=== PATIENT | female | born 1940 | race Caucasian/White ===

== ENCOUNTER 2019-04-04 12:52 | Inpatient (IN) | payer MEDICARE, OTHER ==
[2019-04-04 13:53] LABS: ADD MAN DIFF? NO
[2019-04-04 13:57] LABS: BASOPHIL # 0.1 10^3/ul (0.0-0.1); BASOPHILS % 0.7 % (0.0-2.0); EOSINOPHILS # 0.3 10^3/ul (0.0-0.5); EOSINOPHILS % 2.4 % (0.0-7.0); HEMATOCRIT 38.7 % (37.0-47.0); HEMOGLOBIN 12.3 g/dl (12.0-16.0); LYMPHOCYTES # 3.2 10^3/ul (0.8-2.9); MEAN CORPUSCULAR HEMOGLOBIN 29.1 pg (29.0-33.0); MEAN CORPUSCULAR HGB CONC 31.8 g/dl (32.0-37.0); MEAN CORPUSCULAR VOLUME 91.7 fl (82.0-101.0); MONOCYTE # 1.5 10^3/ul (0.3-0.9); MONOCYTES % 11.2 % (0.0-11.0); NEUTROPHIL # 8.1 10^3/ul (1.6-7.5); NEUTROPHILS % 61.4 % (39.0-77.0); PLATELET COUNT 274 10^3/UL (140-415); RED BLOOD COUNT 4.22 10^6/ul (4.20-5.40); RED CELL DISTRIBUTION WIDTH 14.1 % (11.5-14.5)
[2019-04-04 13:57] LABS: WHITE BLOOD COUNT 13.2 10^3/ul (4.8-10.8)
[2019-04-04] MEDS: LACTATED RINGER'S 1,000 ML IV (13:58)
[2019-04-04 14:15] LABS: ALANINE AMINOTRANSFERASE 25 IU/L (13-69); ALBUMIN 3.7 g/dl (3.3-4.9); ALBUMIN/GLOBULIN RATIO 1.15; ALKALINE PHOSPHATASE 36 IU/L (42-121); ANION GAP 8 (5-13); ASPARTATE AMINO TRANSFERASE 17 IU/L (15-46); BILIRUBIN,INDIRECT 0.5 mg/dl (0-1.1); BILIRUBIN,TOTAL 0.5 mg/dl (0.2-1.3); CALCIUM 9.3 mg/dl (8.4-10.2); CARBON DIOXIDE 27 mmol/L (21-31); CHLORIDE 105 mmol/L (97-110); GLUCOSE 108 mg/dl (70-220); POTASSIUM 3.9 mmol/L (3.5-5.1); SODIUM 140 mmol/L (135-144); TOTAL PROTEIN 6.9 g/dl (6.1-8.1)
[2019-04-04] MEDS ORDERED: CEFAZOLIN 1 GM INJ ×2 (14:16→20:34)
[2019-04-04 14:17] LABS: INR 0.96; PROTIME 12.9 Sec (11.9-14.9)
[2019-04-04 14:20] LABS: PARTIAL THROMBOPLASTIN TIME 35.4 Sec (23.0-35.0)
[2019-04-04 14:21] LABS: BLOOD UREA NITROGEN 33 mg/dl (7-20); CREATININE 1.31 mg/dl (0.44-1.00)
[2019-04-04 14:22] LABS: HOLD TRANSMISSIONS 1
[2019-04-04] MEDS ORDERED: hydrALAzine 20 MG INJ IV ×2 (15:30→19:30)
[2019-04-04] MEDS ORDERED: IPRATROPIUM (NEB) 0.5 MG/2.5 ML AMP HHN ×2 (15:30→19:30)
[2019-04-04] MEDS ORDERED: MIDAZOLAM 1 MG/ML 2 ML INJ IV ×2 (15:30→19:30)
[2019-04-04] MEDS ORDERED: MEPERIDINE 25 MG INJ IV ×2 (15:30→19:30)
[2019-04-04] MEDS ORDERED: HYDROmorphONE 1 MG/5 ML IV SYRINGE IV ×3 (15:30)
[2019-04-04] MEDS ORDERED: FENTAnyl 50 MCG/ML VIAL IV ×6 (15:30→19:30)
[2019-04-04] MEDS ORDERED: ALBUTEROL 0.083% (NEB) 2.5 MG/3 ML AMP HHN ×2 (15:30→19:30)
[2019-04-04] MEDS ORDERED: ONDANSETRON 4 MG INJ IV ×2 (15:30→19:30)
[2019-04-04] MEDS ORDERED: EPHEDrine 25 MG/5 ML SYG IV ×2 (15:30→19:30)
[2019-04-04] MEDS ORDERED: TRIMETHOBENZAMIDE 100 MG/ML VIAL IM ×2 (15:30→19:30)
[2019-04-04] MEDS ORDERED: DIPHENHYDRAMINE 50 MG INJ IV ×2 (15:30→19:30)
[2019-04-04] MEDS ORDERED: LABETALOL HCL 20MG INJ IV ×2 (15:30→19:30)
[2019-04-04] MEDS ORDERED: NEOSTIGMINE 3 MG/3 ML SYRINGE ×2 (15:52→20:34)
[2019-04-04] MEDS ORDERED: ROCURONIUM 50 MG INJ ×2 (15:52→20:34)
[2019-04-04] MEDS ORDERED: PROPOFOL 20 ML ×2 (15:52→20:34)
[2019-04-04] MEDS ORDERED: GLYCOPYRROLATE 0.4 MG INJ ×2 (15:52→20:34)
[2019-04-04] MEDS ORDERED: MIDAZOLAM 1 MG/ML 2 ML INJ ×2 (15:52→20:34)
[2019-04-04] MEDS ORDERED: DEXAMETHASONE 4 MG/ML 5 ML INJ ×2 (15:52→20:34)
[2019-04-04] MEDS ORDERED: ONDANSETRON 4 MG INJ ×2 (15:52→20:34)
[2019-04-04] MEDS ORDERED: SUGAMMADEX SODIUM 200 MG/2 ML VIAL IV ×2 (16:00→18:52)
[2019-04-04] MEDS ORDERED: EPHEDrine 25 MG/5 ML SYG (16:00)
[2019-04-04] MEDS ORDERED: DESFLURANE 15 MIN (16:00)
[2019-04-04] MEDS: GELATIN SIZE 100 SPONGE ×2 (16:13→17:57)
[2019-04-04] MEDS: CEFAZOLIN 1 GM INJ (16:13)
[2019-04-04] MEDS: HEPARIN 1000 UNITS/ML 10 ML INJ ×3 (16:14→20:22)
[2019-04-04] MEDS ORDERED: NACL 0.9% 3 ML SYG IV (17:30)
[2019-04-04] MEDS ORDERED: HYDROmorphONE 0.2 MG/ML PCA IV (17:30)
[2019-04-04] MEDS: DOCUSATE SODIUM 100 MG CAP PO ×2 (17:30→21:00)
[2019-04-04] MEDS ORDERED: NALOXONE (0.4 MG/ML) INJ IV (17:30)
[2019-04-04] MEDS: SURGIFOAM POWDER 1 GM KIT (17:57)
[2019-04-04] MEDS: THROMBIN (BOVINE) 5,000 UNIT VIAL TP ×2 (17:58→17:59)
[2019-04-04] MEDS: CEFAZOLIN 2 GM/50 ML (PMX) 50 ML IVPB (18:00)
[2019-04-04] MEDS: NS + KCL 20 MEQ 1,000 ML IV (18:30)
[2019-04-04] MEDS ORDERED: FENTAnyl 50 MCG/ML VIAL (18:51)
[2019-04-04] MEDS ORDERED: METOCLOPRAMIDE 10 MG INJ IV (19:30)
[2019-04-04] MEDS ORDERED: HYDROmorphONE 0.5 MG/0.5 ML SYG IV ×2 (19:30)
[2019-04-04] MEDS: BACITRACIN/POLYMYXIN 28.35 GM OINT TOP (19:30)
[2019-04-04] MEDS ORDERED: HALOPERIDOL 5 MG INJ IV (19:30)
[2019-04-04] MEDS: HYDROmorphONE 1 MG/ML SYG IV ×2 (19:33→23:08)
[2019-04-04] MEDS ORDERED: IOHEXOL 300MG/ML 30 ML BTL (20:21)
[2019-04-04] MEDS ORDERED: HEPARIN 1000 UNITS/ML 10 ML INJ (20:29)
[2019-04-04] MEDS ORDERED: THROMBIN (BOVINE) 5,000 UNIT VIAL TP ×3 (20:48→22:27)
[2019-04-04] MEDS ORDERED: GELATIN SIZE 100 SPONGE (20:48)
[2019-04-04 20:56] LABS: ADD MAN DIFF? NO
[2019-04-04 20:57] LABS: WHITE BLOOD COUNT 13.9 10^3/ul (4.8-10.8)
[2019-04-04 20:57] LABS: BASOPHILS % 0.3 % (0.0-2.0); EOSINOPHILS # 0.1 10^3/ul (0.0-0.5); EOSINOPHILS % 0.5 % (0.0-7.0); HEMATOCRIT 26.2 % (37.0-47.0); HEMOGLOBIN 8.4 g/dl (12.0-16.0); LYMPHOCYTES # 1.2 10^3/ul (0.8-2.9); LYMPHOCYTES % 8.8 % (15.0-51.0); MEAN CORPUSCULAR HEMOGLOBIN 29.7 pg (29.0-33.0); MEAN CORPUSCULAR HGB CONC 32.1 g/dl (32.0-37.0); MEAN CORPUSCULAR VOLUME 92.6 fl (82.0-101.0); MEAN PLATELET VOLUME 12.4 fl (7.4-10.4); MONOCYTE # 0.7 10^3/ul (0.3-0.9); MONOCYTES % 5.3 % (0.0-11.0); NEUTROPHIL # 11.7 10^3/ul (1.6-7.5); NEUTROPHILS % 84.4 % (39.0-77.0); PLATELET COUNT 160 10^3/UL (140-415); RED BLOOD COUNT 2.83 10^6/ul (4.20-5.40); RED CELL DISTRIBUTION WIDTH 13.8 % (11.5-14.5)
[2019-04-04 21:14] LABS: IMMEDIATE SPIN CROSSMATCH 1 4
[2019-04-04] MEDS: IOHEXOL 300MG/ML 30 ML BTL (22:56)
[2019-04-04] MEDS: PAPAVERINE 60 MG INJ (22:56)
[2019-04-05] MEDS: HYDROmorphONE 0.5 MG/0.5 ML SYG IV ×6 (00:29→23:57)
[2019-04-05 01:33] LABS: ADD MAN DIFF? NO
[2019-04-05 01:35] LABS: BASOPHIL # 0.1 10^3/ul (0.0-0.1); BASOPHILS % 0.4 % (0.0-2.0); EOSINOPHILS % 0.1 % (0.0-7.0); HEMATOCRIT 35.5 % (37.0-47.0); HEMOGLOBIN 11.2 g/dl (12.0-16.0); LYMPHOCYTES # 1.2 10^3/ul (0.8-2.9); LYMPHOCYTES % 6.7 % (15.0-51.0); MEAN CORPUSCULAR HEMOGLOBIN 29.2 pg (29.0-33.0); MEAN CORPUSCULAR HGB CONC 31.5 g/dl (32.0-37.0); MEAN CORPUSCULAR VOLUME 92.4 fl (82.0-101.0); MEAN PLATELET VOLUME 11.8 fl (7.4-10.4); MONOCYTES % 5.6 % (0.0-11.0); NEUTROPHIL # 15.7 10^3/ul (1.6-7.5); NEUTROPHILS % 86.4 % (39.0-77.0); PLATELET COUNT 169 10^3/UL (140-415); RED BLOOD COUNT 3.84 10^6/ul (4.20-5.40); RED CELL DISTRIBUTION WIDTH 14.8 % (11.5-14.5)
[2019-04-05 01:35] LABS: WHITE BLOOD COUNT 18.1 10^3/ul (4.8-10.8)
[2019-04-05 02:21] LABS: ANION GAP 11 (5-13); BLOOD UREA NITROGEN 22 mg/dl (7-20); CALCIUM 6.8 mg/dl (8.4-10.2); CARBON DIOXIDE 23 mmol/L (21-31); CHLORIDE 111 mmol/L (97-110); CREATININE 0.88 mg/dl (0.44-1.00); GLUCOSE 171 mg/dl (70-220); POTASSIUM 4.2 mmol/L (3.5-5.1); SODIUM 145 mmol/L (135-144)
[2019-04-05] MEDS: NS + KCL 20 MEQ 1,000 ML IV ×4 (05:10→23:56)
[2019-04-05] MEDS: CEFAZOLIN 2 GM/50 ML (PMX) 50 ML IVPB ×3 (05:10→21:53)
[2019-04-05 05:29] LABS: HEMATOCRIT 34.8 % (37.0-47.0); HEMOGLOBIN 11.2 g/dl (12.0-16.0)
[2019-04-05 05:54] LABS: ANION GAP 6 (5-13); BLOOD UREA NITROGEN 21 mg/dl (7-20); CARBON DIOXIDE 24 mmol/L (21-31); CHLORIDE 111 mmol/L (97-110); CREATININE 0.98 mg/dl (0.44-1.00); GLUCOSE 154 mg/dl (70-220); POTASSIUM 4.4 mmol/L (3.5-5.1); SODIUM 141 mmol/L (135-144)
[2019-04-05] MEDS: DOCUSATE SODIUM 100 MG CAP PO ×2 (09:00→20:03)
[2019-04-05] MEDS ORDERED: ALPRAZOLAM 0.25 MG TAB PO (14:30)
[2019-04-05] MEDS: PREGABALIN 50 MG CAP PO (20:04)
[2019-04-05] MEDS: METOPROLOL 25 MG TAB PO (20:06)
[2019-04-05] MEDS: ROSUVASTATIN CALCIUM 40 MG TABLET PO (20:06)
[2019-04-06] MEDS: ZOLPIDEM 5 MG TAB PO (02:35)
[2019-04-06] MEDS: CEFAZOLIN 2 GM/50 ML (PMX) 50 ML IVPB ×3 (05:17→22:47)
[2019-04-06] MEDS: HYDROmorphONE 0.5 MG/0.5 ML SYG IV ×5 (06:52→21:23)
[2019-04-06] MEDS: PREGABALIN 50 MG CAP PO ×2 (09:22→23:09)
[2019-04-06] MEDS: DOCUSATE SODIUM 100 MG CAP PO ×2 (09:22→21:22)
[2019-04-06] MEDS: METOPROLOL 25 MG TAB PO ×2 (09:23→21:22)
[2019-04-06] MEDS: NS + KCL 20 MEQ 1,000 ML IV ×2 (09:25→22:47)
[2019-04-06] MEDS: HYDROCODONE/APAP (5/325) TAB PO (16:05)
[2019-04-06] MEDS: ROSUVASTATIN CALCIUM 40 MG TABLET PO (21:22)
[2019-04-07] MEDS: HYDROmorphONE 0.5 MG/0.5 ML SYG IV (00:30)
[2019-04-07] MEDS: ZOLPIDEM 5 MG TAB PO (02:21)
[2019-04-07] MEDS: HYDROCODONE/APAP (5/325) TAB PO ×5 (05:22→22:43)
[2019-04-07] MEDS: NS + KCL 20 MEQ 1,000 ML IV ×2 (06:30→13:21)
[2019-04-07] MEDS: CEFAZOLIN 2 GM/50 ML (PMX) 50 ML IVPB ×3 (06:32→21:01)
[2019-04-07 06:36] LABS: ADD MAN DIFF? NO
[2019-04-07 06:38] LABS: WHITE BLOOD COUNT 13.4 10^3/ul (4.8-10.8)
[2019-04-07 06:38] LABS: ABNORMAL IP MESSAGE 1; BASOPHIL # 0.1 10^3/ul (0.0-0.1); BASOPHILS % 0.4 % (0.0-2.0); EOSINOPHILS # 0.1 10^3/ul (0.0-0.5); EOSINOPHILS % 0.7 % (0.0-7.0); HEMATOCRIT 31.7 % (37.0-47.0); HEMOGLOBIN 9.9 g/dl (12.0-16.0); LYMPHOCYTES # 2.3 10^3/ul (0.8-2.9); MEAN CORPUSCULAR HEMOGLOBIN 29.6 pg (29.0-33.0); MEAN CORPUSCULAR HGB CONC 31.2 g/dl (32.0-37.0); MEAN CORPUSCULAR VOLUME 94.9 fl (82.0-101.0); MEAN PLATELET VOLUME 12.1 fl (7.4-10.4); MONOCYTE # 1.6 10^3/ul (0.3-0.9); MONOCYTES % 11.6 % (0.0-11.0); NEUTROPHIL # 9.3 10^3/ul (1.6-7.5); NEUTROPHILS % 69.4 % (39.0-77.0); PLATELET COUNT 124 10^3/UL (140-415); RED BLOOD COUNT 3.34 10^6/ul (4.20-5.40); RED CELL DISTRIBUTION WIDTH 15.3 % (11.5-14.5)
[2019-04-07 06:47] LABS: POSITIVE DIFF @See below
[2019-04-07 07:08] LABS: ANION GAP 8 (5-13); BLOOD UREA NITROGEN 14 mg/dl (7-20); CALCIUM 6.6 mg/dl (8.4-10.2); CARBON DIOXIDE 23 mmol/L (21-31); CHLORIDE 112 mmol/L (97-110); CREATININE 0.89 mg/dl (0.44-1.00); GLUCOSE 75 mg/dl (70-220); POTASSIUM 4.3 mmol/L (3.5-5.1); SODIUM 143 mmol/L (135-144)
[2019-04-07] MEDS: AMLODIPINE 10 MG TAB PO (08:46)
[2019-04-07] MEDS: HYDROCHLOROTHIAZIDE 25 MG TAB PO (08:47)
[2019-04-07] MEDS: LOSARTAN 50 MG TAB PO (08:47)
[2019-04-07] MEDS: METOPROLOL 25 MG TAB PO ×2 (08:48→20:50)
[2019-04-07] MEDS: DOCUSATE SODIUM 100 MG CAP PO ×2 (08:49→20:49)
[2019-04-07] MEDS: PREGABALIN 50 MG CAP PO ×2 (08:49→20:50)
[2019-04-07] MEDS: ASPIRIN 81 MG TAB PO (08:49)
[2019-04-07] MEDS ORDERED: [UNRECOGNIZED DRUG - OTHER] PO (09:00)
[2019-04-07] MEDS ORDERED: HYDROCHLOROTHIAZIDE PO (09:00)
[2019-04-07] MEDS ORDERED: OLMESARTAN PO (09:00)
[2019-04-07] MEDS: ROSUVASTATIN CALCIUM 40 MG TABLET PO (20:50)
[2019-04-08] MEDS: ZOLPIDEM 5 MG TAB PO ×2 (01:14→21:37)
[2019-04-08] MEDS: CALCIUM GLUCONATE 10% 1 GM in DEXTROSE 5% 100 ML IVPB ×2 (01:14→03:09)
[2019-04-08] MEDS: CEFAZOLIN 2 GM/50 ML (PMX) 50 ML IVPB ×3 (05:51→22:21)
[2019-04-08 06:11] LABS: ADD MAN DIFF? NO
[2019-04-08 06:17] LABS: BASOPHIL # 0.1 10^3/ul (0.0-0.1); BASOPHILS % 0.5 % (0.0-2.0); EOSINOPHILS # 0.4 10^3/ul (0.0-0.5); EOSINOPHILS % 3.3 % (0.0-7.0); HEMATOCRIT 34.5 % (37.0-47.0); HEMOGLOBIN 10.8 g/dl (12.0-16.0); LYMPHOCYTES % 19.2 % (15.0-51.0); MEAN CORPUSCULAR HEMOGLOBIN 28.8 pg (29.0-33.0); MEAN CORPUSCULAR HGB CONC 31.3 g/dl (32.0-37.0); MEAN PLATELET VOLUME 11.9 fl (7.4-10.4); MONOCYTE # 1.2 10^3/ul (0.3-0.9); MONOCYTES % 11.1 % (0.0-11.0); NEUTROPHIL # 6.8 10^3/ul (1.6-7.5); NEUTROPHILS % 65.1 % (39.0-77.0); PLATELET COUNT 136 10^3/UL (140-415); RED BLOOD COUNT 3.75 10^6/ul (4.20-5.40); RED CELL DISTRIBUTION WIDTH 14.6 % (11.5-14.5)
[2019-04-08 06:17] LABS: WHITE BLOOD COUNT 10.5 10^3/ul (4.8-10.8)
[2019-04-08 06:39] LABS: MAGNESIUM 1.4 mg/dl (1.7-2.5)
[2019-04-08 06:39] LABS: PHOSPHORUS 1.4 mg/dl (2.5-4.9)
[2019-04-08 06:41] LABS: ANION GAP 8 (5-13); BLOOD UREA NITROGEN 12 mg/dl (7-20); CALCIUM 7.7 mg/dl (8.4-10.2); CARBON DIOXIDE 25 mmol/L (21-31); CHLORIDE 104 mmol/L (97-110); CREATININE 0.78 mg/dl (0.44-1.00); GLUCOSE 93 mg/dl (70-220); POTASSIUM 3.7 mmol/L (3.5-5.1); SODIUM 137 mmol/L (135-144)
[2019-04-08] MEDS: DOCUSATE SODIUM 100 MG CAP PO ×2 (08:59→21:31)
[2019-04-08] MEDS: ASPIRIN 81 MG TAB PO (08:59)
[2019-04-08] MEDS: AMLODIPINE 10 MG TAB PO (09:00)
[2019-04-08] MEDS: PREGABALIN 50 MG CAP PO ×2 (09:00→21:00)
[2019-04-08] MEDS: HYDROCHLOROTHIAZIDE 25 MG TAB PO (09:01)
[2019-04-08] MEDS: METOPROLOL 25 MG TAB PO ×2 (09:01→21:32)
[2019-04-08] MEDS: LOSARTAN 50 MG TAB PO (09:02)
[2019-04-08] MEDS: HYDROCODONE/APAP (5/325) TAB PO ×2 (09:02→21:37)
[2019-04-08] MEDS: MAGNESIUM SULFATE 4 GM/100 ML 100 ML IVPB (09:32)
[2019-04-08] MEDS: POTASSIUM PHOSPHATE 20 MM in SOD CHLORIDE 0.9% 250 ML IVPB (11:36)
[2019-04-08] MEDS: BISACODYL (EC) 5 MG TAB PO (14:56)
[2019-04-08] MEDS: ROSUVASTATIN CALCIUM 40 MG TABLET PO (21:31)
[2019-04-09] MEDS: CEFAZOLIN 2 GM/50 ML (PMX) 50 ML IVPB ×3 (05:50→21:21)
[2019-04-09] MEDS: HYDROCODONE/APAP (5/325) TAB PO ×2 (05:50→18:07)
[2019-04-09 06:53] LABS: ANION GAP 8 (5-13); BLOOD UREA NITROGEN 11 mg/dl (7-20); CALCIUM 8.5 mg/dl (8.4-10.2); CARBON DIOXIDE 33 mmol/L (21-31); CHLORIDE 98 mmol/L (97-110); CREATININE 0.82 mg/dl (0.44-1.00); GLUCOSE 94 mg/dl (70-220); MAGNESIUM 1.7 mg/dl (1.7-2.5); PHOSPHORUS 2.1 mg/dl (2.5-4.9); POTASSIUM 3.9 mmol/L (3.5-5.1); SODIUM 139 mmol/L (135-144)
[2019-04-09] MEDS: DOCUSATE SODIUM 100 MG CAP PO ×2 (08:15→21:20)
[2019-04-09] MEDS: LOSARTAN 50 MG TAB PO (08:15)
[2019-04-09] MEDS: HYDROmorphONE 0.5 MG/0.5 ML SYG IV (08:15)
[2019-04-09] MEDS: METOPROLOL 25 MG TAB PO ×2 (08:16→21:20)
[2019-04-09] MEDS: ASPIRIN 81 MG TAB PO (08:16)
[2019-04-09] MEDS: AMLODIPINE 10 MG TAB PO (08:16)
[2019-04-09] MEDS: HYDROCHLOROTHIAZIDE 25 MG TAB PO (08:16)
[2019-04-09] MEDS: PREGABALIN 50 MG CAP PO ×2 (08:37→21:20)
[2019-04-09] MEDS: AMIODARONE 200 MG TAB PO ×3 (08:38→21:21)
[2019-04-09] MEDS: ENOXAPARIN 80 MG/0.8 ML SYG SC ×2 (08:46→21:39)
[2019-04-09] MEDS ORDERED: AMIODARONE 200 MG TAB PO (09:00)
[2019-04-09] MEDS ORDERED: ENOXAPARIN 100 MG/ML SYG SC (09:00)
[2019-04-09] MEDS: POTASSIUM PHOSPHATE 15 MM in SOD CHLORIDE 0.9% 250 ML IVPB (10:58)
[2019-04-09] MEDS: ROSUVASTATIN CALCIUM 40 MG TABLET PO (21:19)
[2019-04-09] MEDS: ZOLPIDEM 5 MG TAB PO (23:59)
[2019-04-10 06:05] LABS: ADD MAN DIFF? NO
[2019-04-10 06:12] LABS: BASOPHIL # 0.1 10^3/ul (0.0-0.1); BASOPHILS % 0.7 % (0.0-2.0); EOSINOPHILS # 0.5 10^3/ul (0.0-0.5); EOSINOPHILS % 5.6 % (0.0-7.0); HEMOGLOBIN 11.2 g/dl (12.0-16.0); LYMPHOCYTES # 1.7 10^3/ul (0.8-2.9); LYMPHOCYTES % 19.9 % (15.0-51.0); MEAN CORPUSCULAR HEMOGLOBIN 28.9 pg (29.0-33.0); MEAN CORPUSCULAR VOLUME 90.2 fl (82.0-101.0); MEAN PLATELET VOLUME 11.3 fl (7.4-10.4); MONOCYTE # 1.3 10^3/ul (0.3-0.9); MONOCYTES % 15.4 % (0.0-11.0); NEUTROPHIL # 4.9 10^3/ul (1.6-7.5); NEUTROPHILS % 57.3 % (39.0-77.0); PLATELET COUNT 198 10^3/UL (140-415); RED BLOOD COUNT 3.88 10^6/ul (4.20-5.40); RED CELL DISTRIBUTION WIDTH 14.3 % (11.5-14.5)
[2019-04-10 06:12] LABS: WHITE BLOOD COUNT 8.5 10^3/ul (4.8-10.8)
[2019-04-10 06:22] LABS: ANION GAP 9 (5-13); BLOOD UREA NITROGEN 16 mg/dl (7-20); CALCIUM 7.8 mg/dl (8.4-10.2); CARBON DIOXIDE 30 mmol/L (21-31); CHLORIDE 98 mmol/L (97-110); CREATININE 0.86 mg/dl (0.44-1.00); GLUCOSE 77 mg/dl (70-220); PHOSPHORUS 2.6 mg/dl (2.5-4.9); POTASSIUM 3.5 mmol/L (3.5-5.1); SODIUM 137 mmol/L (135-144)
[2019-04-10] MEDS: AMLODIPINE 10 MG TAB PO (08:43)
[2019-04-10] MEDS: AMIODARONE 200 MG TAB PO ×2 (08:43→21:19)
[2019-04-10] MEDS: DOCUSATE SODIUM 100 MG CAP PO ×2 (08:43→21:20)
[2019-04-10] MEDS: HYDROCHLOROTHIAZIDE 25 MG TAB PO (08:44)
[2019-04-10] MEDS: PREGABALIN 50 MG CAP PO ×2 (08:44→21:21)
[2019-04-10] MEDS: LOSARTAN 50 MG TAB PO (08:44)
[2019-04-10] MEDS: METOPROLOL 25 MG TAB PO ×2 (08:44→21:20)
[2019-04-10] MEDS: HYDROCODONE/APAP (5/325) TAB PO ×3 (08:45→19:17)
[2019-04-10] MEDS: ASPIRIN 81 MG TAB PO (08:45)
[2019-04-10] MEDS: ENOXAPARIN 80 MG/0.8 ML SYG SC ×2 (08:52→21:39)
[2019-04-10] MEDS: ROSUVASTATIN CALCIUM 40 MG TABLET PO (21:18)
[2019-04-11] MEDS: ZOLPIDEM 5 MG TAB PO (00:14)
[2019-04-11 06:39] LABS: ANION GAP 5 (5-13); BLOOD UREA NITROGEN 18 mg/dl (7-20); CARBON DIOXIDE 35 mmol/L (21-31); CHLORIDE 96 mmol/L (97-110); CREATININE 0.91 mg/dl (0.44-1.00); GLUCOSE 92 mg/dl (70-220); POTASSIUM 3.6 mmol/L (3.5-5.1); SODIUM 136 mmol/L (135-144)
[2019-04-11] MEDS: HYDROCHLOROTHIAZIDE 25 MG TAB PO (08:28)
[2019-04-11] MEDS: PREGABALIN 50 MG CAP PO ×2 (08:29→21:41)
[2019-04-11] MEDS: METOPROLOL 25 MG TAB PO ×2 (08:29→21:00)
[2019-04-11] MEDS: LOSARTAN 50 MG TAB PO (08:29)
[2019-04-11] MEDS: HYDROCODONE/APAP (5/325) TAB PO ×4 (08:29→21:57)
[2019-04-11] MEDS: ASPIRIN 81 MG TAB PO (08:29)
[2019-04-11] MEDS: AMLODIPINE 10 MG TAB PO (08:29)
[2019-04-11] MEDS: DOCUSATE SODIUM 100 MG CAP PO ×2 (08:29→21:41)
[2019-04-11] MEDS: AMIODARONE 200 MG TAB PO ×2 (08:30→21:42)
[2019-04-11] MEDS: ENOXAPARIN 80 MG/0.8 ML SYG SC ×2 (08:32→21:53)
[2019-04-11] MEDS: ROSUVASTATIN CALCIUM 40 MG TABLET PO (21:41)
[2019-04-12] MEDS: ZOLPIDEM 5 MG TAB PO ×2 (01:57→23:49)
[2019-04-12] MEDS: DOCUSATE SODIUM 100 MG CAP PO ×2 (09:12→20:13)
[2019-04-12] MEDS: AMLODIPINE 10 MG TAB PO (09:12)
[2019-04-12] MEDS: HYDROCHLOROTHIAZIDE 25 MG TAB PO (09:13)
[2019-04-12] MEDS: METOPROLOL 25 MG TAB PO ×2 (09:13→20:13)
[2019-04-12] MEDS: LOSARTAN 50 MG TAB PO (09:14)
[2019-04-12] MEDS: PREGABALIN 50 MG CAP PO ×2 (09:14→20:12)
[2019-04-12] MEDS: AMIODARONE 200 MG TAB PO (09:14)
[2019-04-12] MEDS: ENOXAPARIN 80 MG/0.8 ML SYG SC ×2 (09:14→20:28)
[2019-04-12] MEDS: ASPIRIN 81 MG TAB PO (09:14)
[2019-04-12] MEDS: HYDROCODONE/APAP (5/325) TAB PO (12:38)
[2019-04-12] MEDS: HYDROmorphONE 0.5 MG/0.5 ML SYG IV ×2 (14:52→20:13)
[2019-04-12] MEDS: ROSUVASTATIN CALCIUM 40 MG TABLET PO (20:13)
[2019-04-13 07:22] LABS: ANION GAP 9 (5-13); BLOOD UREA NITROGEN 21 mg/dl (7-20); CALCIUM 8.1 mg/dl (8.4-10.2); CARBON DIOXIDE 34 mmol/L (21-31); CHLORIDE 95 mmol/L (97-110); CREATININE 1.04 mg/dl (0.44-1.00); GLUCOSE 98 mg/dl (70-220); MAGNESIUM 1.6 mg/dl (1.7-2.5); POTASSIUM 3.2 mmol/L (3.5-5.1); SODIUM 138 mmol/L (135-144)
[2019-04-13] MEDS: ASPIRIN 81 MG TAB PO (08:50)
[2019-04-13] MEDS: DOCUSATE SODIUM 100 MG CAP PO ×2 (08:50→20:34)
[2019-04-13] MEDS: PREGABALIN 50 MG CAP PO ×2 (08:55→20:34)
[2019-04-13] MEDS: AMLODIPINE 10 MG TAB PO (08:55)
[2019-04-13] MEDS: HYDROCODONE/APAP (5/325) TAB PO ×2 (08:56→14:22)
[2019-04-13] MEDS: AMIODARONE 200 MG TAB PO (08:56)
[2019-04-13] MEDS: LOSARTAN 50 MG TAB PO (08:57)
[2019-04-13] MEDS: HYDROCHLOROTHIAZIDE 25 MG TAB PO (08:57)
[2019-04-13] MEDS: METOPROLOL 25 MG TAB PO ×2 (08:57→20:35)
[2019-04-13] MEDS: ENOXAPARIN 80 MG/0.8 ML SYG SC ×2 (09:24→20:57)
[2019-04-13] MEDS: POTASSIUM CHLORIDE (SR) 20 MEQ TAB PO (13:36)
[2019-04-13] MEDS: MAGNESIUM SULFATE 3 GM in DEXTROSE 5% 100 ML IVPB (15:55)
[2019-04-13] MEDS: ROSUVASTATIN CALCIUM 40 MG TABLET PO (20:34)
[2019-04-13] MEDS: HYDROmorphONE 0.5 MG/0.5 ML SYG IV (20:35)
[2019-04-14] MEDS: ZOLPIDEM 5 MG TAB PO (00:21)
[2019-04-14] MEDS: HYDROmorphONE 0.5 MG/0.5 ML SYG IV ×3 (07:33→16:14)
[2019-04-14] MEDS: PREGABALIN 50 MG CAP PO ×2 (08:07→20:37)
[2019-04-14] MEDS: DOCUSATE SODIUM 100 MG CAP PO ×2 (08:08→20:36)
[2019-04-14] MEDS: LOSARTAN 50 MG TAB PO (08:09)
[2019-04-14] MEDS: AMIODARONE 200 MG TAB PO (08:09)
[2019-04-14] MEDS: METOPROLOL 25 MG TAB PO ×2 (08:09→20:37)
[2019-04-14] MEDS: HYDROCHLOROTHIAZIDE 25 MG TAB PO (08:10)
[2019-04-14] MEDS: ASPIRIN 81 MG TAB PO (08:10)
[2019-04-14] MEDS: AMLODIPINE 10 MG TAB PO (08:10)
[2019-04-14] MEDS: ENOXAPARIN 80 MG/0.8 ML SYG SC ×2 (08:17→21:27)
[2019-04-14 08:56] LABS: ANION GAP 6 (5-13); BLOOD UREA NITROGEN 25 mg/dl (7-20); CALCIUM 8.2 mg/dl (8.4-10.2); CARBON DIOXIDE 36 mmol/L (21-31); CHLORIDE 96 mmol/L (97-110); CREATININE 1.14 mg/dl (0.44-1.00); GLUCOSE 97 mg/dl (70-220); SODIUM 138 mmol/L (135-144)
[2019-04-14 11:01] LABS: MAGNESIUM 2.2 mg/dl (1.7-2.5)
[2019-04-14] MEDS: ROSUVASTATIN CALCIUM 40 MG TABLET PO (20:36)
== END 2019-04-14 20:55 | DRG 460 ==
LOC: TEL 04-06 15:43 → REC 12:52 → ICU 19:05
PROC: 0SG30A0 Fusion of Lumbosacral Joint with Interbody Fusion Device, Anterior Approach, Anterior Column, Open Approach (ICD-10-PCS; principal; 2019-04-04 15:00)
PROC: 0SG00A0 Fusion of Lumbar Vertebral Joint with Interbody Fusion Device, Anterior Approach, Anterior Column, Open Approach (ICD-10-PCS; 2019-04-04 15:00)
PROC: 4A11X4G Monitoring of Peripheral Nervous Electrical Activity, Intraoperative, External Approach (ICD-10-PCS; 2019-04-04 15:00)
PROC: 30233N1 Transfusion of Nonautologous Red Blood Cells into Peripheral Vein, Percutaneous Approach (ICD-10-PCS; 2019-04-04 15:00)
PROC: 04CJ0ZZ Extirpation of Matter from Left External Iliac Artery, Open Approach (ICD-10-PCS; 2019-04-04 16:11)
DX: M51.17 Intervertebral disc disorders with radiculopathy, lumbosacral region (principal); I74.5 Embolism and thrombosis of iliac artery; J84.10 Pulmonary fibrosis, unspecified; M06.9 Rheumatoid arthritis, unspecified; N18.9 Chronic kidney disease, unspecified; M19.90 Unspecified osteoarthritis, unspecified site; E66.9 Obesity, unspecified; Z68.33 Body mass index [BMI] 33.0-33.9, adult; M48.07 Spinal stenosis, lumbosacral region; J45.909 Unspecified asthma, uncomplicated; I12.9 Hypertensive chronic kidney disease with stage 1 through stage 4 chronic kidney disease, or unspecified chronic kidney disease
CPT/HCPCS: 36430; 71045; 72114; 72131; 75716; 80048; 80053; 83735; 84100; 84443; 85014; 85018; 85025; 85610; 85730; 86850; 86900; 86901; 86920; 87081; 88304; 93005; 93306; 97110; 97116; 97161; 97530

== ENCOUNTER 2019-05-01 13:19 | Inpatient (IN) | payer MEDICARE, OTHER ==
[2019-05-01 15:49] LABS: ADD MAN DIFF? NO
[2019-05-01 15:50] LABS: WHITE BLOOD COUNT 11.1 10^3/ul (4.8-10.8)
[2019-05-01 15:50] LABS: ABNORMAL IP MESSAGE 1; BASOPHIL # 0.1 10^3/ul (0.0-0.1); BASOPHILS % 0.8 % (0.0-2.0); EOSINOPHILS # 0.6 10^3/ul (0.0-0.5); EOSINOPHILS % 5.1 % (0.0-7.0); HEMATOCRIT 35.6 % (37.0-47.0); LYMPHOCYTES # 3.4 10^3/ul (0.8-2.9); LYMPHOCYTES % 30.7 % (15.0-51.0); MEAN CORPUSCULAR HGB CONC 30.9 g/dl (32.0-37.0); MEAN CORPUSCULAR VOLUME 93.9 fl (82.0-101.0); MEAN PLATELET VOLUME 11.8 fl (7.4-10.4); MONOCYTE # 1.6 10^3/ul (0.3-0.9); MONOCYTES % 14.5 % (0.0-11.0); NEUTROPHIL # 5.4 10^3/ul (1.6-7.5); NEUTROPHILS % 48.5 % (39.0-77.0); PLATELET COUNT 285 10^3/UL (140-415); RED BLOOD COUNT 3.79 10^6/ul (4.20-5.40); RED CELL DISTRIBUTION WIDTH 15.4 % (11.5-14.5)
[2019-05-01] MEDS: ALBUTEROL 0.083% (NEB) 2.5 MG/3 ML AMP HHN (16:46)
[2019-05-01] MEDS ORDERED: ETOMIDATE 20 MG INJ (16:59)
[2019-05-01] MEDS ORDERED: MIDAZOLAM 1 MG/ML 2 ML INJ (16:59)
[2019-05-01] MEDS ORDERED: ROCURONIUM 50 MG INJ (16:59)
[2019-05-01] MEDS ORDERED: LIDOCAINE 2% (SDV) 5 ML INJ (16:59)
[2019-05-01] MEDS ORDERED: MEPERIDINE 25 MG INJ IV (17:00)
[2019-05-01] MEDS ORDERED: ONDANSETRON 4 MG INJ IV ×2 (17:00→20:30)
[2019-05-01] MEDS ORDERED: hydrALAzine 20 MG INJ IV ×2 (17:00→20:30)
[2019-05-01] MEDS ORDERED: DIPHENHYDRAMINE 50 MG INJ IV (17:00)
[2019-05-01] MEDS ORDERED: LABETALOL HCL 20MG INJ IV ×2 (17:00→20:30)
[2019-05-01] MEDS ORDERED: LORAZEPAM 2 MG INJ IV (17:00)
[2019-05-01] MEDS ORDERED: HYDROmorphONE 1 MG/5 ML IV SYRINGE IV ×3 (17:00)
[2019-05-01] MEDS ORDERED: CEFAZOLIN 1 GM INJ (17:09)
[2019-05-01] MEDS ORDERED: ONDANSETRON 4 MG INJ (17:10)
[2019-05-01] MEDS ORDERED: DEXAMETHASONE 4 MG/ML 5 ML INJ (17:10)
[2019-05-01] MEDS: GELATIN SIZE 100 SPONGE (18:55)
[2019-05-01] MEDS: POLYMYXIN/BACITRACIN 1L IRRIG (18:56)
[2019-05-01] MEDS: ROPIVACAINE 0.5 % 30 ML VIAL ×2 (18:56)
[2019-05-01] MEDS: THROMBIN 5000 UNIT (RECOTHROM) VIAL (18:56)
[2019-05-01] MEDS ORDERED: EPHEDrine 25 MG/5 ML SYG (19:43)
[2019-05-01] MEDS ORDERED: PHENYLephrine (100 MCG/ML) 10ML SYG (19:43)
[2019-05-01] MEDS ORDERED: NALOXONE (0.4 MG/ML) INJ IV (20:00)
[2019-05-01] MEDS ORDERED: NACL 0.9% 3 ML SYG IV (20:00)
[2019-05-01] MEDS ORDERED: AL HYDROX/MG HYDROX/SIMETH 30 ML CUP PO (20:00)
[2019-05-01] MEDS ORDERED: ACETAMINOPHEN 325 MG TAB PO (20:00)
[2019-05-01] MEDS ORDERED: FLUMAZENIL 0.5 MG INJ (20:11)
[2019-05-01] MEDS ORDERED: HYDROmorphONE 0.5 MG/0.5 ML SYG IV (20:30)
[2019-05-01] MEDS ORDERED: ALBUTEROL 0.083% (NEB) 2.5 MG/3 ML AMP HHN ×2 (20:30)
[2019-05-01] MEDS: FLUMAZENIL 0.5 MG INJ IV ×2 (20:43→20:49)
[2019-05-01] MEDS: NS + KCL 20 MEQ 1,000 ML IV (20:43)
[2019-05-01] MEDS: HYDROmorphONE 0.5 MG/0.5 ML SYG IV (22:03)
[2019-05-01] MEDS: CEFAZOLIN 2 GM/50 ML (PMX) 50 ML IVPB (22:47)
[2019-05-02] MEDS: HYDROmorphONE 0.5 MG/0.5 ML SYG IV ×4 (02:51→20:26)
[2019-05-02 05:15] LABS: HEMATOCRIT 30.5 % (37.0-47.0); HEMOGLOBIN 9.2 g/dl (12.0-16.0)
[2019-05-02] MEDS: CEFAZOLIN 2 GM/50 ML (PMX) 50 ML IVPB ×3 (05:15→21:53)
[2019-05-02 06:00] LABS: ANION GAP 7 (5-13); BLOOD UREA NITROGEN 21 mg/dl (7-20); CALCIUM 7.1 mg/dl (8.4-10.2); CARBON DIOXIDE 25 mmol/L (21-31); CHLORIDE 111 mmol/L (97-110); CREATININE 0.88 mg/dl (0.44-1.00); GLUCOSE 166 mg/dl (70-220); POTASSIUM 3.8 mmol/L (3.5-5.1); SODIUM 143 mmol/L (135-144)
[2019-05-02] MEDS: NS + KCL 20 MEQ 1,000 ML IV ×2 (07:00→09:15)
[2019-05-02] MEDS: HYDROCODONE/APAP (5/325) TAB PO (17:53)
[2019-05-03] MEDS: HYDROCODONE/APAP (5/325) TAB PO ×6 (00:49→21:52)
[2019-05-03] MEDS: HYDROmorphONE 0.5 MG/0.5 ML SYG IV ×3 (03:55→14:18)
[2019-05-03] MEDS: CEFAZOLIN 2 GM/50 ML (PMX) 50 ML IVPB ×3 (06:13→21:54)
[2019-05-03] MEDS: ALBUTEROL/IPRATROPIUM (NEB) 3 ML AMP HHN (13:55)
[2019-05-03] MEDS ORDERED: BISACODYL 10 MG SUPP PR (15:30)
[2019-05-03] MEDS ORDERED: ZOLPIDEM 5 MG TAB PO (15:30)
[2019-05-03] MEDS ORDERED: NA PHOSPHATE/BIPHOS 133 ML ENEMA PR (15:30)
[2019-05-03] MEDS ORDERED: ONDANSETRON 4 MG INJ IV (15:30)
[2019-05-03] MEDS ORDERED: FLUTICASONE/VILANTEROL 100-25 INH (15:30)
[2019-05-03] MEDS: HYDROCHLOROTHIAZIDE 25 MG TAB PO (16:22)
[2019-05-03] MEDS: ASPIRIN 81 MG TAB PO (16:22)
[2019-05-03] MEDS: MULTIVITAMINS THERAPEUTIC TAB PO (16:23)
[2019-05-03] MEDS: DOCUSATE SODIUM 100 MG CAP PO (20:48)
[2019-05-03] MEDS: PREGABALIN 100 MG CAP PO (20:49)
[2019-05-03] MEDS: ROSUVASTATIN CALCIUM 40 MG TABLET PO (20:49)
[2019-05-03] MEDS: METOPROLOL 25 MG TAB PO (20:49)
[2019-05-04] MEDS: HYDROmorphONE 0.5 MG/0.5 ML SYG IV ×3 (01:01→23:39)
[2019-05-04 05:08] LABS: ADD MAN DIFF? NO
[2019-05-04 05:11] LABS: ABNORMAL IP MESSAGE 1; BASOPHIL # 0.1 10^3/ul (0.0-0.1); BASOPHILS % 0.6 % (0.0-2.0); EOSINOPHILS # 0.4 10^3/ul (0.0-0.5); EOSINOPHILS % 3.7 % (0.0-7.0); HEMATOCRIT 30.4 % (37.0-47.0); HEMOGLOBIN 9.3 g/dl (12.0-16.0); LYMPHOCYTES # 2.6 10^3/ul (0.8-2.9); MEAN CORPUSCULAR HGB CONC 30.6 g/dl (32.0-37.0); MEAN CORPUSCULAR VOLUME 94.7 fl (82.0-101.0); MEAN PLATELET VOLUME 11.5 fl (7.4-10.4); MONOCYTE # 1.6 10^3/ul (0.3-0.9); NEUTROPHIL # 6.4 10^3/ul (1.6-7.5); NEUTROPHILS % 57.4 % (39.0-77.0); PLATELET COUNT 219 10^3/UL (140-415); RED BLOOD COUNT 3.21 10^6/ul (4.20-5.40); RED CELL DISTRIBUTION WIDTH 15.7 % (11.5-14.5)
[2019-05-04 05:11] LABS: WHITE BLOOD COUNT 11.1 10^3/ul (4.8-10.8)
[2019-05-04 05:14] LABS: POSITIVE DIFF @See below
[2019-05-04 05:45] LABS: ANION GAP 4 (5-13); BLOOD UREA NITROGEN 12 mg/dl (7-20); CALCIUM 7.9 mg/dl (8.4-10.2); CARBON DIOXIDE 32 mmol/L (21-31); CHLORIDE 105 mmol/L (97-110); CREATININE 0.85 mg/dl (0.44-1.00); GLUCOSE 93 mg/dl (70-220); MAGNESIUM 1.4 mg/dl (1.7-2.5); POTASSIUM 3.8 mmol/L (3.5-5.1); SODIUM 141 mmol/L (135-144)
[2019-05-04] MEDS: HYDROCHLOROTHIAZIDE 25 MG TAB PO (06:17)
[2019-05-04] MEDS: HYDROCODONE/APAP (5/325) TAB PO ×3 (06:17→20:16)
[2019-05-04] MEDS: ASPIRIN 81 MG TAB PO (08:45)
[2019-05-04] MEDS: MULTIVITAMINS THERAPEUTIC TAB PO (08:45)
[2019-05-04] MEDS: DOCUSATE SODIUM 100 MG CAP PO ×2 (08:46→20:19)
[2019-05-04] MEDS: PREGABALIN 50 MG CAP PO (08:46)
[2019-05-04] MEDS: METOPROLOL 25 MG TAB PO ×2 (08:47→20:19)
[2019-05-04] MEDS: MAGNESIUM SULFATE 2 GM/50 ML 50 ML IVPB (10:57)
[2019-05-04] MEDS: GUAIFENESIN/DM 5ML CUP PO (16:16)
[2019-05-04] MEDS: LOSARTAN 50 MG TAB PO (17:53)
[2019-05-04] MEDS: ROSUVASTATIN CALCIUM 40 MG TABLET PO (20:19)
[2019-05-04] MEDS: PREGABALIN 100 MG CAP PO (20:19)
[2019-05-05] MEDS: HYDROCODONE/APAP (5/325) TAB PO ×2 (05:07→08:46)
[2019-05-05] MEDS: HYDROCHLOROTHIAZIDE 25 MG TAB PO (05:07)
[2019-05-05] MEDS: DOCUSATE SODIUM 100 MG CAP PO (08:47)
[2019-05-05] MEDS: METOPROLOL 25 MG TAB PO (08:47)
[2019-05-05] MEDS: PREGABALIN 50 MG CAP PO (08:47)
[2019-05-05] MEDS: ASPIRIN 81 MG TAB PO (08:47)
[2019-05-05] MEDS: MULTIVITAMINS THERAPEUTIC TAB PO (08:47)
[2019-05-05] MEDS: LOSARTAN 50 MG TAB PO (08:48)
[2019-05-05 13:26] LABS: ADD MAN DIFF? NO
[2019-05-05 13:29] LABS: BASOPHIL # 0.1 10^3/ul (0.0-0.1); BASOPHILS % 0.5 % (0.0-2.0); EOSINOPHILS # 0.5 10^3/ul (0.0-0.5); HEMATOCRIT 31.5 % (37.0-47.0); HEMOGLOBIN 9.8 g/dl (12.0-16.0); LYMPHOCYTES # 2.2 10^3/ul (0.8-2.9); LYMPHOCYTES % 20.7 % (15.0-51.0); MEAN CORPUSCULAR HEMOGLOBIN 28.7 pg (29.0-33.0); MEAN CORPUSCULAR HGB CONC 31.1 g/dl (32.0-37.0); MEAN CORPUSCULAR VOLUME 92.4 fl (82.0-101.0); MEAN PLATELET VOLUME 11.6 fl (7.4-10.4); MONOCYTE # 1.3 10^3/ul (0.3-0.9); NEUTROPHIL # 6.2 10^3/ul (1.6-7.5); NEUTROPHILS % 59.8 % (39.0-77.0); PLATELET COUNT 233 10^3/UL (140-415); RED BLOOD COUNT 3.41 10^6/ul (4.20-5.40)
[2019-05-05 13:29] LABS: WHITE BLOOD COUNT 10.4 10^3/ul (4.8-10.8)
[2019-05-05 13:46] LABS: ANION GAP 5 (5-13); BLOOD UREA NITROGEN 14 mg/dl (7-20); CALCIUM 8.2 mg/dl (8.4-10.2); CARBON DIOXIDE 32 mmol/L (21-31); CHLORIDE 100 mmol/L (97-110); CREATININE 0.96 mg/dl (0.44-1.00); GLUCOSE 100 mg/dl (70-220); MAGNESIUM 1.8 mg/dl (1.7-2.5); POTASSIUM 3.1 mmol/L (3.5-5.1); SODIUM 137 mmol/L (135-144)
== END 2019-05-05 13:05 | DRG 460 ==
LOC: SDS 13:19 → MS1 05-02 17:28 → SDS 20:21 → ICU 20:22
PROVIDERS: Internal Medicine
PROC: 0SG10K1 Fusion of 2 or more Lumbar Vertebral Joints with Nonautologous Tissue Substitute, Posterior Approach, Posterior Column, Open Approach (ICD-10-PCS; principal; 2019-05-01 17:00)
PROC: 0SG30K1 Fusion of Lumbosacral Joint with Nonautologous Tissue Substitute, Posterior Approach, Posterior Column, Open Approach (ICD-10-PCS; 2019-05-01 17:00)
PROC: 01NB0ZZ Release Lumbar Nerve, Open Approach (ICD-10-PCS; 2019-05-01 17:00)
PROC: 01NR0ZZ Release Sacral Nerve, Open Approach (ICD-10-PCS; 2019-05-01 17:00)
PROC: 0SP004Z Removal of Internal Fixation Device from Lumbar Vertebral Joint, Open Approach (ICD-10-PCS; 2019-05-01 17:00)
DX: M54.16 Radiculopathy, lumbar region (principal); M06.9 Rheumatoid arthritis, unspecified; I10 Essential (primary) hypertension; J45.909 Unspecified asthma, uncomplicated; K21.9 Gastro-esophageal reflux disease without esophagitis; M81.0 Age-related osteoporosis without current pathological fracture; E83.42 Hypomagnesemia; E66.9 Obesity, unspecified; F41.9 Anxiety disorder, unspecified; Z96.651 Presence of right artificial knee joint; Z68.32 Body mass index [BMI] 32.0-32.9, adult; Z98.1 Arthrodesis status; Z86.718 Personal history of other venous thrombosis and embolism; Z79.01 Long term (current) use of anticoagulants; Z79.82 Long term (current) use of aspirin
CPT/HCPCS: 72114; 72131; 80048; 83735; 85014; 85018; 85025; 86850; 86900; 86901; 87081; 88300; 94664; 97110; 97116; 97162; 97530

== ENCOUNTER 2019-05-05 13:16 | Inpatient (IN) | payer MEDICARE, OTHER ==
[2019-05-05] MEDS: HYDROCODONE/APAP (5/325) TAB PO ×2 (14:22→17:36)
[2019-05-05] MEDS ORDERED: PENDING SANTYL ORDER FOR WOUND CARE XX (14:30)
[2019-05-05] MEDS ORDERED: FLUTICASONE/VILANTEROL 100-25 INH (16:30)
[2019-05-05] MEDS ORDERED: ACETAMINOPHEN 325 MG TAB PO (16:30)
[2019-05-05] MEDS ORDERED: NA PHOSPHATE/BIPHOS 133 ML ENEMA PR (16:30)
[2019-05-05] MEDS ORDERED: AL HYDROX/MG HYDROX/SIMETH 30 ML CUP PO (16:30)
[2019-05-05] MEDS ORDERED: LACTULOSE 30ML CUP PO (16:30)
[2019-05-05] MEDS ORDERED: GUAIFENESIN/DM 5ML CUP PO (16:30)
[2019-05-05 18:28] LABS: ADD UMIC YES; UR ASCORBIC ACID NEGATIVE (NEGATIVE); UR BILIRUBIN (Dip) NEGATIVE (NEGATIVE); UR BLOOD (Dip) 1+ mg/dL (NEGATIVE); UR CLARITY CLEAR (CLEAR); UR COLOR YELLOW (YELLOW); UR GLUCOSE (Dip) NEGATIVE (NEGATIVE); UR KETONES (Dip) NEGATIVE (NEGATIVE); UR LEUKOCYTE ESTERASE (Dip) NEGATIVE Leu/ul (NEGATIVE); UR MUCUS FEW /HPF (NONE SEEN); UR NITRITE (Dip) NEGATIVE (NEGATIVE); UR RBC 46 /HPF (0-5); UR SPECIFIC GRAVITY (Dip) 1.011 (1.003-1.030); UR TOTAL PROTEIN (Dip) NEGATIVE (NEGATIVE); UR UROBILINOGEN (Dip) 1+ mg/dL (NEGATIVE); UR WBC 2 /HPF (0-5)
[2019-05-05] MEDS: ALBUTEROL/IPRATROPIUM (NEB) 3 ML AMP HHN (19:40)
[2019-05-05] MEDS ORDERED: ALBUTEROL 0.083% (NEB) 2.5 MG/3 ML AMP HHN (20:00)
[2019-05-05] MEDS: ROSUVASTATIN CALCIUM 40 MG TABLET PO (20:37)
[2019-05-05] MEDS: SENNA TAB PO (20:37)
[2019-05-05] MEDS: DOCUSATE SODIUM 100 MG CAP PO (20:37)
[2019-05-05] MEDS: METOPROLOL 25 MG TAB PO (20:37)
[2019-05-05] MEDS: PREGABALIN 50 MG CAP PO (20:37)
[2019-05-05] MEDS ORDERED: SPECIAL NON-STANDARD MEDICATION PO (21:00)
[2019-05-06] MEDS: HYDROCODONE/APAP (5/325) TAB PO ×4 (00:15→20:48)
[2019-05-06] MEDS: ALBUTEROL/IPRATROPIUM (NEB) 3 ML AMP HHN ×4 (01:09→20:00)
[2019-05-06] MEDS: ZOLPIDEM 5 MG TAB PO (01:16)
[2019-05-06] MEDS ORDERED: HYDROCHLOROTHIAZIDE 25 MG TAB PO (06:00)
[2019-05-06 07:09] LABS: ADD MAN DIFF? NO
[2019-05-06 07:10] LABS: WHITE BLOOD COUNT 9.2 10^3/ul (4.8-10.8)
[2019-05-06 07:10] LABS: BASOPHIL # 0.1 10^3/ul (0.0-0.1); BASOPHILS % 0.8 % (0.0-2.0); EOSINOPHILS # 0.6 10^3/ul (0.0-0.5); EOSINOPHILS % 6.6 % (0.0-7.0); HEMATOCRIT 31.3 % (37.0-47.0); HEMOGLOBIN 9.6 g/dl (12.0-16.0); LYMPHOCYTES # 2.3 10^3/ul (0.8-2.9); LYMPHOCYTES % 24.9 % (15.0-51.0); MEAN CORPUSCULAR HEMOGLOBIN 28.9 pg (29.0-33.0); MEAN CORPUSCULAR HGB CONC 30.7 g/dl (32.0-37.0); MEAN CORPUSCULAR VOLUME 94.3 fl (82.0-101.0); MEAN PLATELET VOLUME 12.3 fl (7.4-10.4); MONOCYTE # 1.2 10^3/ul (0.3-0.9); MONOCYTES % 12.6 % (0.0-11.0); NEUTROPHIL # 4.9 10^3/ul (1.6-7.5); PLATELET COUNT 201 10^3/UL (140-415); RED BLOOD COUNT 3.32 10^6/ul (4.20-5.40); RED CELL DISTRIBUTION WIDTH 15.2 % (11.5-14.5)
[2019-05-06 07:30] LABS: ALANINE AMINOTRANSFERASE 25 IU/L (13-69); ALKALINE PHOSPHATASE 82 IU/L (42-121); ANION GAP 8 (5-13); ASPARTATE AMINO TRANSFERASE 21 IU/L (15-46); BILIRUBIN,INDIRECT 0.3 mg/dl (0-1.1); BILIRUBIN,TOTAL 0.3 mg/dl (0.2-1.3); BLOOD UREA NITROGEN 21 mg/dl (7-20); CALCIUM 8.4 mg/dl (8.4-10.2); CARBON DIOXIDE 30 mmol/L (21-31); CHLORIDE 102 mmol/L (97-110); CREATININE 1.02 mg/dl (0.44-1.00); GLUCOSE 88 mg/dl (70-220); POSITIVE DIFF @See below; POTASSIUM 3.1 mmol/L (3.5-5.1); SODIUM 140 mmol/L (135-144)
[2019-05-06 07:31] LABS: ALBUMIN 2.9 g/dl (3.3-4.9); ALBUMIN/GLOBULIN RATIO 0.96; TOTAL PROTEIN 5.9 g/dl (6.1-8.1)
[2019-05-06] MEDS ORDERED: SPECIAL NON-STANDARD MEDICATION PO (09:00)
[2019-05-06] MEDS: FLUTICASONE/VILANTEROL 100-25 INH (09:20)
[2019-05-06] MEDS: DOCUSATE SODIUM 100 MG CAP PO ×2 (09:21→21:00)
[2019-05-06] MEDS: MULTIVITAMINS THERAPEUTIC TAB PO (09:21)
[2019-05-06] MEDS: PREGABALIN 50 MG CAP PO ×2 (09:21→20:48)
[2019-05-06] MEDS: HYDROCHLOROTHIAZIDE 12.5 MG CAP PO (09:21)
[2019-05-06] MEDS: ASPIRIN 81 MG TAB PO (09:21)
[2019-05-06] MEDS: LOSARTAN 50 MG TAB PO (09:22)
[2019-05-06] MEDS: METOPROLOL 25 MG TAB PO ×2 (09:23→20:49)
[2019-05-06] MEDS: POTASSIUM CHLORIDE (SR) 20 MEQ TAB PO ×2 (13:57→17:53)
[2019-05-06] MEDS: ROSUVASTATIN CALCIUM 40 MG TABLET PO (20:48)
[2019-05-06] MEDS: SENNA TAB PO (21:00)
[2019-05-07] MEDS: ALBUTEROL/IPRATROPIUM (NEB) 3 ML AMP HHN ×4 (01:22→20:11)
[2019-05-07] MEDS: HYDROCODONE/APAP (5/325) TAB PO ×4 (06:50→19:51)
[2019-05-07] MEDS: DOCUSATE SODIUM 100 MG CAP PO ×2 (09:00→20:41)
[2019-05-07] MEDS: PREGABALIN 50 MG CAP PO ×2 (09:06→20:41)
[2019-05-07] MEDS: ASPIRIN 81 MG TAB PO (09:06)
[2019-05-07] MEDS: MULTIVITAMINS THERAPEUTIC TAB PO (09:06)
[2019-05-07] MEDS: METOPROLOL 25 MG TAB PO ×2 (09:07→20:42)
[2019-05-07] MEDS: LOSARTAN 50 MG TAB PO (09:08)
[2019-05-07] MEDS: HYDROCHLOROTHIAZIDE 12.5 MG CAP PO (09:08)
[2019-05-07] MEDS: FLUTICASONE/VILANTEROL 100-25 INH (09:09)
[2019-05-07] MEDS: morphine 2 MG INJ IV ×3 (09:18→21:20)
[2019-05-07 14:42] LABS: ADD MAN DIFF? NO
[2019-05-07 14:44] LABS: BASOPHIL # 0.1 10^3/ul (0.0-0.1); BASOPHILS % 0.7 % (0.0-2.0); EOSINOPHILS # 0.9 10^3/ul (0.0-0.5); EOSINOPHILS % 7.7 % (0.0-7.0); HEMATOCRIT 31.6 % (37.0-47.0); HEMOGLOBIN 9.6 g/dl (12.0-16.0); LYMPHOCYTES # 3.3 10^3/ul (0.8-2.9); LYMPHOCYTES % 27.7 % (15.0-51.0); MEAN CORPUSCULAR HEMOGLOBIN 28.3 pg (29.0-33.0); MEAN CORPUSCULAR HGB CONC 30.4 g/dl (32.0-37.0); MEAN CORPUSCULAR VOLUME 93.2 fl (82.0-101.0); MONOCYTE # 1.4 10^3/ul (0.3-0.9); MONOCYTES % 11.7 % (0.0-11.0); NEUTROPHIL # 6.1 10^3/ul (1.6-7.5); NEUTROPHILS % 50.5 % (39.0-77.0); PLATELET COUNT 271 10^3/UL (140-415); RED BLOOD COUNT 3.39 10^6/ul (4.20-5.40); RED CELL DISTRIBUTION WIDTH 15.3 % (11.5-14.5)
[2019-05-07 15:01] LABS: ANION GAP 5 (5-13); BLOOD UREA NITROGEN 19 mg/dl (7-20); CALCIUM 8.7 mg/dl (8.4-10.2); CARBON DIOXIDE 31 mmol/L (21-31); CHLORIDE 104 mmol/L (97-110); GLUCOSE 116 mg/dl (70-220); POTASSIUM 3.9 mmol/L (3.5-5.1); SODIUM 140 mmol/L (135-144)
[2019-05-07] MEDS: ROSUVASTATIN CALCIUM 40 MG TABLET PO (20:41)
[2019-05-07] MEDS: SENNA TAB PO (20:45)
[2019-05-08] MEDS: ALBUTEROL/IPRATROPIUM (NEB) 3 ML AMP HHN ×4 (02:00→20:02)
[2019-05-08] MEDS: HYDROCODONE/APAP (5/325) TAB PO ×4 (02:09→20:53)
[2019-05-08 07:30] LABS: ADD MAN DIFF? NO
[2019-05-08 07:33] LABS: ABNORMAL IP MESSAGE 1; BASOPHIL # 0.1 10^3/ul (0.0-0.1); EOSINOPHILS # 1.1 10^3/ul (0.0-0.5); EOSINOPHILS % 10.1 % (0.0-7.0); HEMATOCRIT 31.1 % (37.0-47.0); HEMOGLOBIN 9.4 g/dl (12.0-16.0); LYMPHOCYTES # 2.4 10^3/ul (0.8-2.9); LYMPHOCYTES % 22.2 % (15.0-51.0); MEAN CORPUSCULAR HEMOGLOBIN 28.9 pg (29.0-33.0); MEAN CORPUSCULAR HGB CONC 30.2 g/dl (32.0-37.0); MEAN CORPUSCULAR VOLUME 95.7 fl (82.0-101.0); MEAN PLATELET VOLUME 11.1 fl (7.4-10.4); MONOCYTE # 1.6 10^3/ul (0.3-0.9); MONOCYTES % 14.1 % (0.0-11.0); NEUTROPHIL # 5.5 10^3/ul (1.6-7.5); NEUTROPHILS % 50.4 % (39.0-77.0); PLATELET COUNT 275 10^3/UL (140-415); RED BLOOD COUNT 3.25 10^6/ul (4.20-5.40); RED CELL DISTRIBUTION WIDTH 15.4 % (11.5-14.5)
[2019-05-08 07:35] LABS: POSITIVE DIFF @See below
[2019-05-08 07:57] LABS: ANION GAP 8 (5-13); BLOOD UREA NITROGEN 20 mg/dl (7-20); CALCIUM 8.6 mg/dl (8.4-10.2); CARBON DIOXIDE 31 mmol/L (21-31); CHLORIDE 103 mmol/L (97-110); CREATININE 1.07 mg/dl (0.44-1.00); GLUCOSE 93 mg/dl (70-220); POTASSIUM 4.6 mmol/L (3.5-5.1); SODIUM 142 mmol/L (135-144)
[2019-05-08] MEDS: FLUTICASONE/VILANTEROL 100-25 INH (08:25)
[2019-05-08] MEDS: ASPIRIN 81 MG TAB PO (08:26)
[2019-05-08] MEDS: HYDROCHLOROTHIAZIDE 12.5 MG CAP PO (08:26)
[2019-05-08] MEDS: PREGABALIN 50 MG CAP PO ×2 (08:26→20:51)
[2019-05-08] MEDS: MULTIVITAMINS THERAPEUTIC TAB PO (08:26)
[2019-05-08] MEDS: DOCUSATE SODIUM 100 MG CAP PO ×2 (08:26→20:50)
[2019-05-08] MEDS: METOPROLOL 25 MG TAB PO ×2 (08:27→20:50)
[2019-05-08] MEDS: LOSARTAN 50 MG TAB PO (08:27)
[2019-05-08] MEDS: morphine 2 MG INJ IV ×2 (09:49→18:23)
[2019-05-08] MEDS: ROSUVASTATIN CALCIUM 40 MG TABLET PO (20:50)
[2019-05-08] MEDS: SENNA TAB PO (20:54)
[2019-05-08] MEDS: ZOLPIDEM 5 MG TAB PO (23:20)
[2019-05-09] MEDS: ALBUTEROL/IPRATROPIUM (NEB) 3 ML AMP HHN ×4 (01:30→20:27)
[2019-05-09] MEDS: HYDROCODONE/APAP (5/325) TAB PO ×4 (04:01→20:43)
[2019-05-09] MEDS: FLUTICASONE/VILANTEROL 100-25 INH (08:28)
[2019-05-09] MEDS: DOCUSATE SODIUM 100 MG CAP PO ×2 (08:29→20:42)
[2019-05-09] MEDS: ASPIRIN 81 MG TAB PO (08:31)
[2019-05-09] MEDS: MULTIVITAMINS THERAPEUTIC TAB PO (08:32)
[2019-05-09] MEDS: PREGABALIN 50 MG CAP PO ×2 (08:33→20:42)
[2019-05-09] MEDS: LOSARTAN 50 MG TAB PO (08:35)
[2019-05-09] MEDS: HYDROCHLOROTHIAZIDE 12.5 MG CAP PO (09:00)
[2019-05-09] MEDS: METOPROLOL 25 MG TAB PO ×2 (09:00→20:43)
[2019-05-09] MEDS: morphine 2 MG INJ IV ×2 (11:16→17:11)
[2019-05-09] MEDS: SENNA TAB PO (20:42)
[2019-05-09] MEDS: ROSUVASTATIN CALCIUM 40 MG TABLET PO (20:42)
[2019-05-09] MEDS: ZOLPIDEM 5 MG TAB PO (22:53)
[2019-05-10] MEDS: ALBUTEROL/IPRATROPIUM (NEB) 3 ML AMP HHN ×4 (01:13→21:57)
[2019-05-10] MEDS: HYDROCODONE/APAP (5/325) TAB PO ×3 (06:12→15:34)
[2019-05-10] MEDS: morphine 2 MG INJ IV (08:47)
[2019-05-10] MEDS: ASPIRIN 81 MG TAB PO (08:52)
[2019-05-10] MEDS: PREGABALIN 50 MG CAP PO ×2 (08:52→20:29)
[2019-05-10] MEDS: MULTIVITAMINS THERAPEUTIC TAB PO (08:52)
[2019-05-10] MEDS: FLUTICASONE/VILANTEROL 100-25 INH (08:52)
[2019-05-10] MEDS: DOCUSATE SODIUM 100 MG CAP PO ×2 (08:52→20:29)
[2019-05-10] MEDS: METOPROLOL 25 MG TAB PO ×2 (08:57→20:29)
[2019-05-10] MEDS: LOSARTAN 50 MG TAB PO (08:57)
[2019-05-10] MEDS: HYDROCHLOROTHIAZIDE 12.5 MG CAP PO (08:57)
[2019-05-10] MEDS: ROSUVASTATIN CALCIUM 40 MG TABLET PO (20:28)
[2019-05-10] MEDS: SENNA TAB PO (20:29)
[2019-05-10] MEDS: BACLOFEN 10 MG TAB PO (20:36)
[2019-05-10] MEDS: ZOLPIDEM 5 MG TAB PO (22:15)
[2019-05-11] MEDS: ALBUTEROL/IPRATROPIUM (NEB) 3 ML AMP HHN ×4 (01:28→21:31)
[2019-05-11] MEDS: HYDROCODONE/APAP (5/325) TAB PO ×5 (05:07→20:50)
[2019-05-11] MEDS: FLUTICASONE/VILANTEROL 100-25 INH (08:53)
[2019-05-11] MEDS: METOPROLOL 25 MG TAB PO ×2 (08:54→20:10)
[2019-05-11] MEDS: MULTIVITAMINS THERAPEUTIC TAB PO (08:54)
[2019-05-11] MEDS: PREGABALIN 50 MG CAP PO ×2 (08:54→20:09)
[2019-05-11] MEDS: DOCUSATE SODIUM 100 MG CAP PO ×2 (08:54→20:09)
[2019-05-11] MEDS: HYDROCHLOROTHIAZIDE 12.5 MG CAP PO (08:54)
[2019-05-11] MEDS: ASPIRIN 81 MG TAB PO (08:54)
[2019-05-11] MEDS: BACLOFEN 10 MG TAB PO ×3 (08:55→20:10)
[2019-05-11] MEDS: LOSARTAN 50 MG TAB PO (08:55)
[2019-05-11] MEDS: ROSUVASTATIN CALCIUM 40 MG TABLET PO (20:10)
[2019-05-11] MEDS: SENNA TAB PO (20:10)
[2019-05-12] MEDS: ALBUTEROL/IPRATROPIUM (NEB) 3 ML AMP HHN ×4 (01:32→20:18)
[2019-05-12] MEDS: HYDROCODONE/APAP (5/325) TAB PO ×5 (06:29→20:42)
[2019-05-12] MEDS: MULTIVITAMINS THERAPEUTIC TAB PO (08:23)
[2019-05-12] MEDS: HYDROCHLOROTHIAZIDE 12.5 MG CAP PO (08:23)
[2019-05-12] MEDS: DOCUSATE SODIUM 100 MG CAP PO ×2 (08:23→20:36)
[2019-05-12] MEDS: LIDOCAINE 5% PATCH TD (08:23)
[2019-05-12] MEDS: LOSARTAN 50 MG TAB PO (08:27)
[2019-05-12] MEDS: METOPROLOL 25 MG TAB PO ×2 (08:27→20:41)
[2019-05-12] MEDS: FLUTICASONE/VILANTEROL 100-25 INH (08:28)
[2019-05-12] MEDS: PREGABALIN 50 MG CAP PO ×2 (08:28→20:37)
[2019-05-12] MEDS: ASPIRIN 81 MG TAB PO (08:30)
[2019-05-12] MEDS: ALPRAZOLAM 0.25 MG TAB PO (09:38)
[2019-05-12] MEDS: SENNA TAB PO (20:37)
[2019-05-12] MEDS: ROSUVASTATIN CALCIUM 40 MG TABLET PO (20:37)
[2019-05-12] MEDS ORDERED: BACLOFEN 10 MG TAB PO (21:00)
[2019-05-12] MEDS: ZOLPIDEM 5 MG TAB PO (23:41)
[2019-05-13] MEDS: ALBUTEROL/IPRATROPIUM (NEB) 3 ML AMP HHN ×2 (01:33→08:00)
[2019-05-13] MEDS: HYDROCODONE/APAP (5/325) TAB PO ×3 (06:40→20:29)
[2019-05-13] MEDS: DOCUSATE SODIUM 100 MG CAP PO ×2 (08:43→20:22)
[2019-05-13] MEDS: ASPIRIN 81 MG TAB PO (08:43)
[2019-05-13] MEDS: FLUTICASONE/VILANTEROL 100-25 INH (08:43)
[2019-05-13] MEDS: HYDROCHLOROTHIAZIDE 12.5 MG CAP PO (08:44)
[2019-05-13] MEDS: LOSARTAN 50 MG TAB PO (08:44)
[2019-05-13] MEDS: MULTIVITAMINS THERAPEUTIC TAB PO (08:45)
[2019-05-13] MEDS: ALPRAZOLAM 0.25 MG TAB PO (08:45)
[2019-05-13] MEDS: PREGABALIN 50 MG CAP PO ×2 (08:45→20:21)
[2019-05-13] MEDS: LIDOCAINE 5% PATCH TD (08:46)
[2019-05-13] MEDS: METOPROLOL 25 MG TAB PO ×2 (08:51→20:25)
[2019-05-13] MEDS: morphine 2 MG INJ IV (14:37)
[2019-05-13] MEDS: ROSUVASTATIN CALCIUM 40 MG TABLET PO (20:21)
[2019-05-13] MEDS: SENNA TAB PO (20:22)
[2019-05-13] MEDS: ZOLPIDEM 5 MG TAB PO (23:22)
[2019-05-14] MEDS: HYDROCODONE/APAP (5/325) TAB PO ×5 (00:59→20:34)
[2019-05-14] MEDS: FLUTICASONE/VILANTEROL 100-25 INH (08:32)
[2019-05-14] MEDS: DOCUSATE SODIUM 100 MG CAP PO ×2 (08:33→20:29)
[2019-05-14] MEDS: ASPIRIN 81 MG TAB PO (08:34)
[2019-05-14] MEDS: HYDROCHLOROTHIAZIDE 12.5 MG CAP PO (08:34)
[2019-05-14] MEDS: PREGABALIN 50 MG CAP PO ×2 (08:34→20:29)
[2019-05-14] MEDS: MULTIVITAMINS THERAPEUTIC TAB PO (08:35)
[2019-05-14] MEDS: LOSARTAN 50 MG TAB PO (08:35)
[2019-05-14] MEDS: LIDOCAINE 5% PATCH TD (08:41)
[2019-05-14] MEDS: METOPROLOL 25 MG TAB PO ×2 (09:00→20:32)
[2019-05-14] MEDS: SENNA TAB PO (20:29)
[2019-05-14] MEDS: ROSUVASTATIN CALCIUM 40 MG TABLET PO (20:29)
[2019-05-14] MEDS: ZOLPIDEM 5 MG TAB PO (23:17)
[2019-05-15] MEDS: HYDROCODONE/APAP (5/325) TAB PO ×5 (06:37→22:03)
[2019-05-15] MEDS: HYDROCHLOROTHIAZIDE 12.5 MG CAP PO (09:00)
[2019-05-15] MEDS: ASPIRIN 81 MG TAB PO (10:59)
[2019-05-15] MEDS: MULTIVITAMINS THERAPEUTIC TAB PO (10:59)
[2019-05-15] MEDS: FLUTICASONE/VILANTEROL 100-25 INH (11:00)
[2019-05-15] MEDS: PREGABALIN 50 MG CAP PO ×2 (11:00→20:20)
[2019-05-15] MEDS: DOCUSATE SODIUM 100 MG CAP PO ×2 (11:00→20:20)
[2019-05-15] MEDS: LOSARTAN 50 MG TAB PO (11:10)
[2019-05-15] MEDS: METOPROLOL 25 MG TAB PO ×2 (11:11→20:22)
[2019-05-15] MEDS: LIDOCAINE 5% PATCH TD (12:44)
[2019-05-15] MEDS: MAGNESIUM HYDROXIDE 30ML CUP PO (20:20)
[2019-05-15] MEDS: ROSUVASTATIN CALCIUM 40 MG TABLET PO (20:20)
[2019-05-15] MEDS: SENNA TAB PO (20:20)
[2019-05-15] MEDS: ZOLPIDEM 5 MG TAB PO (23:38)
[2019-05-16] MEDS: BISACODYL 10 MG SUPP PR (03:04)
[2019-05-16] MEDS: HYDROCODONE/APAP (5/325) TAB PO ×5 (06:00→22:15)
[2019-05-16] MEDS: FLUTICASONE/VILANTEROL 100-25 INH (08:59)
[2019-05-16] MEDS: LIDOCAINE 5% PATCH TD (08:59)
[2019-05-16] MEDS: PREGABALIN 50 MG CAP PO ×2 (08:59→20:16)
[2019-05-16] MEDS: DOCUSATE SODIUM 100 MG CAP PO ×2 (09:00→20:16)
[2019-05-16] MEDS: ASPIRIN 81 MG TAB PO (09:00)
[2019-05-16] MEDS: MULTIVITAMINS THERAPEUTIC TAB PO (09:00)
[2019-05-16] MEDS: METOPROLOL 25 MG TAB PO ×2 (09:00→20:21)
[2019-05-16] MEDS: LOSARTAN 50 MG TAB PO (09:00)
[2019-05-16] MEDS: HYDROCHLOROTHIAZIDE 12.5 MG CAP PO (09:00)
[2019-05-16] MEDS: morphine 2 MG INJ IV (18:50)
[2019-05-16] MEDS: ROSUVASTATIN CALCIUM 40 MG TABLET PO (20:16)
[2019-05-16] MEDS: SENNA TAB PO (21:00)
[2019-05-16] MEDS: ZOLPIDEM 5 MG TAB PO (23:08)
[2019-05-17] MEDS: HYDROCODONE/APAP (5/325) TAB PO ×3 (06:42→11:51)
[2019-05-17] MEDS: LIDOCAINE 5% PATCH TD (08:40)
[2019-05-17] MEDS: FLUTICASONE/VILANTEROL 100-25 INH (08:40)
[2019-05-17] MEDS: PREGABALIN 50 MG CAP PO (08:41)
[2019-05-17] MEDS: MULTIVITAMINS THERAPEUTIC TAB PO (08:41)
[2019-05-17] MEDS: DOCUSATE SODIUM 100 MG CAP PO (08:41)
[2019-05-17] MEDS: LOSARTAN 50 MG TAB PO (08:42)
[2019-05-17] MEDS: ASPIRIN 81 MG TAB PO (08:42)
[2019-05-17] MEDS: METOPROLOL 25 MG TAB PO (08:42)
[2019-05-17] MEDS: HYDROCHLOROTHIAZIDE 12.5 MG CAP PO (08:43)
== END 2019-05-17 13:22 | disposition home health service (06) | DRG 552 ==
LOC: VRC 05-06 13:56
PROC: F07Z9FZ Gait Training/Functional Ambulation Treatment using Assistive, Adaptive, Supportive or Protective Equipment (ICD-10-PCS; principal; 2019-05-05)
PROC: F07Z5FZ Bed Mobility Treatment using Assistive, Adaptive, Supportive or Protective Equipment (ICD-10-PCS; 2019-05-05)
PROC: F07Z8FZ Transfer Training Treatment using Assistive, Adaptive, Supportive or Protective Equipment (ICD-10-PCS; 2019-05-05)
PROC: F08Z2FZ Grooming/Personal Hygiene Treatment using Assistive, Adaptive, Supportive or Protective Equipment (ICD-10-PCS; 2019-05-05)
PROC: F08Z0FZ Bathing/Showering Techniques Treatment using Assistive, Adaptive, Supportive or Protective Equipment (ICD-10-PCS; 2019-05-05)
PROC: F08Z1FZ Dressing Techniques Treatment using Assistive, Adaptive, Supportive or Protective Equipment (ICD-10-PCS; 2019-05-05)
DX: M48.07 Spinal stenosis, lumbosacral region (principal); F33.2 Major depressive disorder, recurrent severe without psychotic features; D62 Acute posthemorrhagic anemia; M54.17 Radiculopathy, lumbosacral region; Z98.1 Arthrodesis status; E87.6 Hypokalemia; I10 Essential (primary) hypertension; M81.0 Age-related osteoporosis without current pathological fracture; M06.89 Other specified rheumatoid arthritis, multiple sites; K21.9 Gastro-esophageal reflux disease without esophagitis; F41.9 Anxiety disorder, unspecified; J44.9 Chronic obstructive pulmonary disease, unspecified; Z96.651 Presence of right artificial knee joint; Z79.82 Long term (current) use of aspirin
CPT/HCPCS: 80048; 80053; 81001; 85025; 87081; 87086; 94640; 94664; 97110; 97112; 97116; 97150; 97163; 97530; 97535